=== PATIENT | female | born 1980 | race Caucasian/White ===

== ENCOUNTER 2017-05-09 21:06 | Emergency (ER) | payer MEDICAID, OTHER ==
[2017-05-09] MEDS ORDERED: HYDROmorphone 2 MG/ML Syringe SUBCUT ONE (22:47)
[2017-05-09] MEDS ORDERED: Promethazine 25 MG/ML SDV IM ONE (22:47)
[2017-05-09] MEDS ORDERED: Ketorolac 60 MG/2 ML SDV IM ONE (22:48)
[2017-05-09] MEDS ORDERED: Ondansetron 4 MG Tab.DIS PO ONE (22:48)
--- NOTE | 2017-05-09 22:53 | EDM.PDOC ---
ED HPI GENERAL MEDICAL PROBLEM - General Chief Complaint: General Stated Complaint: HEADACHE Time Seen by Provider: 05/09/17 21:32 Source of Information: Reports: Patient History Limitations: Reports: No Limitations - History of Present Illness INITIAL COMMENTS - FREE TEXT/NARRATIVE: This is a 37yo F who has been to the clinic on May 07 for treatment of her migraine and now in the ER tonight for the same issue 2 days later. She has frequented the ER and our clinic for this same issue and has received the similar treatments as she brings in a letter from her physician Dr. Ky Lloyd MD a neurologist from [facility]. The patient states she has been with this Neurologist for years and that he is a miracle maker. She states she receives botox injections every few months and it helps her episodes. She states she has been worked up and there is some anomalous issue with her brain or arteries. She does seem visibly upset at intervals but able to articulate her history very well. I had called the [facility] for advice and received a call back from Dr. Vishnu Dumont who was unable to direct any advice as he could not access Dr. Lloyd's notes and states he will have Dr. Lloyd call me in the morning. Patient states she [place] with her 6 kids and frequently gets these migraines. She has her daughter with her to keep her company. Her drives and will pick her up per patient. 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 Medication(s) (has prescription of dilaudid) - Related Data Allergies Allergy/AdvReac Type Severity Reaction Status Date / Time amoxicillin trihydrate Allergy Rash Verified 05/09/17 21:08 [From Augmentin] magnesium salicylate Allergy Arrhythmias Verified 05/09/17 21:08 potassium clavulanate Allergy Rash Verified 05/09/17 21:08 [From Augmentin] tramadol HCl [From Ultram] Allergy Seizure Verified 05/09/17 21:08 Home Meds: Home Meds Ondansetron HCl [Zofran] 4 mg PO DAILY 03/20/15 [History] SUMAtriptan [Imitrex Pen Injector Kit] 1 kit SUBCUT ASDIRECTED 05/27/16 [History ] Zolpidem [Ambien] 10 mg PO BEDTIME PRN 05/09/17 [History] Past Medical History - Past Health History Medical/Surgical History: Denies Medical/Surgical History HEENT History: Reports: Impaired Vision 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 - total 7 pregnancies. Neurological History: Reports: CVA, Headaches, Chronic, Migraines, Other (See Below) Other Neuro History: Spasmodic torticollis, abnormal brain scan Other Hematologic History: lupus antiocoagulant Immunologic History: Reports: Other (See Below) Other Immunologic History: lupus anticoagulant - Past Surgical History GI Surgical History: Reports: Cholecystectomy Social & Family History - Family History Family Medical History: Noncontributory HEENT: Reports: None Neurological: Reports: None Endocrine/Metabolic: Reports: None - Tobacco Use Smoking Status *Q: Never Smoker Second Hand Smoke Exposure: No - Caffeine Use Caffeine Use: Reports: Coffee - Alcohol Use Days Per Week of Alcohol Use: 0 - Recreational Drug Use Recreational Drug Use: No ED ROS GENERAL - Review of Systems Review Of Systems: ROS reveals no pertinent complaints other than HPI. ED EXAM, GENERAL - Physical Exam Exam: See Below Exam Limited By: No Limitations General Appearance: Alert, WD/WN, Moderate Distress Eye Exam: Bilateral Eye: EOMI, PERRL Ears: Normal External Exam Nose: Normal Inspection Throat/Mouth: Normal Inspection Head: Atraumatic, Normocephalic Neck: Normal Inspection Respiratory/Chest: No Respiratory Distress Cardiovascular: Normal Peripheral Pulses Neurological: Alert, Oriented, Normal Cognition, Normal Gait, No Motor/Sensory Deficits Psychiatric: Tearful Skin Exam: Warm, Dry, Intact Course - Orders/Labs/Meds Labs: Laboratory Tests 05/09/17 Range/Units 21:30 Urine Opiates Screen Negative (NEGATIVE) Ur Oxycodone Screen Negative (NEGATIVE) Urine Methadone Screen Not Reportable U Acetaminophen Screen Not Reportable Ur Barbiturates Screen Negative (NEGATIVE) Ur Tricyclics Screen Negative (NEGATIVE) Ur Phencyclidine Scrn Negative (NEGATIVE) Ur Amphetamine Screen Negative (NEGATIVE) U Methamphetamines Scrn Negative (NEGATIVE) U Benzodiazepines Scrn Negative (NEGATIVE) U Cocaine Metab Screen Negative (NEGATIVE) U Marijuana (THC) Screen Negative (NEGATIVE) Meds: Medications Discontinued Medications Generic Name Dose Route Start Last Admin Trade Name Keli PRN Reason Stop Dose Admin Hydromorphone HCl 2 mg 05/09/17 22:47 Dilaudid SUBCUT 05/09/17 22:48 ONETIME ONE Ketorolac Tromethamine 60 mg 05/09/17 22:48 Toradol IM 05/09/17 22:49 ONETIME ONE Ondansetron HCl 4 mg 05/09/17 22:48 Zofran Odt PO 05/09/17 22:49 ONETIME ONE Promethazine HCl 50 mg 05/09/17 22:47 Phenergan IM 05/09/17 22:48 ONETIME ONE - Re-Assessments/Exams Free Text/Narrative Re-Assessment/Exam: Patient was given order as directed from Neurology note from 03/19/2017 from [facility] under Dr. Gabino MD. Departure - Departure Time of Disposition: 23:45 Disposition: Home, Self-Care 01 Condition: Good Clinical Impression: Intractable migraine Qualifiers: Migraine type: unspecified Status migrainosus presence: without status migrainosus Qualified Code(s): G43.919 - Migraine, unspecified, intractable, without status migrainosus - Discharge Information Forms: ED Department Discharge Additional Instructions: Continue taking all previously prescribed medications. Drink plenty of fluids and get plenty of rest. Activity as tolerated, with limited exposure to bright lights/screens/electronic devices, which may make migraine headache worse. Follow up with regular provider as needed. Call with any questions. - Problem List & Annotations (1) Intractable migraine SNOMED Code(s): 736159262 Code(s): G43.919 - MIGRAINE, UNSP, INTRACTABLE, WITHOUT STATUS MIGRAINOSUS Status: Acute Qualifiers: Migraine type: unspecified Status migrainosus presence: without status migrainosus Qualified Code(s): G43.919 - Migraine, unspecified, intractable, without status migrainosus - Problem List Review Problem List Initiated/Reviewed/Updated: Yes - Assessment/Plan Plan: Patient counseled on f/u with Neurologist. Discussed concerns of frequent ER visits and repeated Dilaudid, Phenergan, Toradol, Zofran use. Patient understands concerns. I will expect a call from Dr. Lloyd to discuss this matter tomorrow am as stated by Dr. Vishnu Dumont. Patient to be discharged with instructions of no driving. will drive. Rest and contact Neurologist as directed and f/u as needed.
[2017-05-10 03:55] VITALS: BP 115/59
== END 2017-05-09 23:10 | disposition home or self-care (01) ==
LOC: LB.ED 21:06
DX: G43.919 Migraine, unspecified, intractable, without status migrainosus (principal); Z88.1 Allergy status to other antibiotic agents; Z88.5 Allergy status to narcotic agent; Z90.49 Acquired absence of other specified parts of digestive tract; Z79.899 Other long term (current) drug therapy
CPT/HCPCS: 80307; 96372; 99283-25

== ENCOUNTER 2017-06-28 19:11 | Emergency (ER) | payer MEDICAID ==
[2017-06-28 19:58] VITALS: BP 107/52
[2017-06-28] MEDS ORDERED: HYDROmorphone 2 MG/ML Syringe IVPUSH ONE (20:11)
[2017-06-28] MEDS ORDERED: Promethazine 25 MG/ML SDV IM ONE (20:11)
[2017-06-28] MEDS ORDERED: Ketorolac 60 MG/2 ML SDV IM ONE (20:12)
[2017-06-28] MEDS ORDERED: Ondansetron 4 MG Tab.DIS PO ONE (20:12)
--- NOTE | 2017-06-28 20:47 | EDM.PDOC ---
ED HPI GENERAL MEDICAL PROBLEM - General Chief Complaint: Headache Stated Complaint: Migraine Time Seen by Provider: 06/28/17 19:54 Source of Information: Reports: Patient History Limitations: Reports: No Limitations - History of Present Illness INITIAL COMMENTS - FREE TEXT/NARRATIVE: This is a 37yo F in moderate distress with complaints of an intractable migraine. She has been in our ER multiple times with the same order from Dr. Lloyd for Dilaudid, Toradol, Phenergan and zofran. So far this cocktail has worked for her. Patient states she has a follow up appointment with her Neurologist Dr. Lloyd next month. Patient states her medications from home including her sumatriptan has not worked and that is why she is here. Patient denies other concerns but does have photophobia. Her dropped her off tonight and will be picking her up. 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 MACHINE FEEDER: Imitrex pen injector a couple of hours ago - Related Data Allergies Allergy/AdvReac Type Severity Reaction Status Date / Time amoxicillin trihydrate Allergy Rash Verified 06/28/17 19:43 [From Augmentin] magnesium salicylate Allergy Arrhythmias Verified 06/28/17 19:43 potassium clavulanate Allergy Rash Verified 06/28/17 19:43 [From Augmentin] tramadol HCl [From Ultram] Allergy Seizure Verified 06/28/17 19:43 Home Meds: Home Meds Ondansetron HCl [Zofran] 4 mg PO DAILY 03/20/15 [History] SUMAtriptan [Imitrex Pen Injector Kit] 1 kit SUBCUT ASDIRECTED 05/27/16 [History ] Zolpidem [Ambien] 10 mg PO BEDTIME PRN 05/09/17 [History] Past Medical History - Past Health History Medical/Surgical History: Denies Medical/Surgical History HEENT History: Reports: Impaired Vision, Other (See Below) Other HEENT History: wears contact lens 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 - total 7 pregnancies. Neurological History: Reports: CVA, Headaches, Chronic, Migraines, Other (See Below) Other Neuro History: Spasmodic torticollis, abnormal brain scan Other Hematologic History: lupus antiocoagulant Immunologic History: Reports: Other (See Below) Other Immunologic History: lupus anticoagulant - Infectious Disease History Infectious Disease History: Reports: Chicken Pox - Past Surgical History HEENT Surgical History: Reports: None GI Surgical History: Reports: Cholecystectomy Social & Family History - Family History Family Medical History: Noncontributory HEENT: Reports: None Neurological: Reports: None Endocrine/Metabolic: Reports: None - Tobacco Use Smoking Status *Q: Never Smoker Second Hand Smoke Exposure: No - Caffeine Use Caffeine Use: Reports: Coffee, Soda, Tea Caffeine Use Comment: not frequently - Alcohol Use Days Per Week of Alcohol Use: 0 - Recreational Drug Use Recreational Drug Use: No ED ROS GENERAL - Review of Systems Review Of Systems: ROS reveals no pertinent complaints other than HPI. ED EXAM, NEURO - Physical Exam Exam: See Below Exam Limited By: No Limitations General Appearance: Alert, WD/WN, Moderate Distress Eye Exam: Bilateral Eye: EOMI, PERRL Ears: Normal External Exam Nose: Normal Inspection Throat/Mouth: Normal Inspection Head Exam: Atraumatic, Normocephalic Neck: Normal Inspection Respiratory/Chest: No Respiratory Distress Cardiovascular: Normal Peripheral Pulses Neurological: Alert, Normal Mood/Affect Psychiatric: Normal Affect, Normal Mood Skin Exam: Warm, Dry, Intact Course - Vital Signs Last Recorded V/S: Last Vital Signs Temp 36.5 C 06/28/17 19:27 Pulse 49 L 06/28/17 19:27 Resp 16 06/28/17 19:27 BP 107/52 L 06/28/17 19:27 Pulse Ox 100 06/28/17 19:27 - Orders/Labs/Meds Meds: Medications Discontinued Medications Generic Name Dose Route Start Last Admin Trade Name Freq PRN Reason Stop Dose Admin Hydromorphone HCl 2 mg 06/28/17 20:11 06/28/17 20:37 Dilaudid IVPUSH 06/28/17 20:12 2 mg ONETIME ONE Administration Ketorolac Tromethamine 60 mg 06/28/17 20:12 06/28/17 20:23 Toradol IM 06/28/17 20:13 60 mg ONETIME ONE Administration Ondansetron HCl 4 mg 06/28/17 20:12 06/28/17 20:22 Zofran Odt PO 06/28/17 20:13 4 mg ONETIME ONE Administration Promethazine HCl 50 mg 06/28/17 20:11 06/28/17 20:33 Phenergan IM 06/28/17 20:12 50 mg ONETIME ONE Administration - Re-Assessments/Exams Free Text/Narrative Re-Assessment/Exam: Cocktail given IM and PO. Departure - Departure Time of Disposition: 20:50 Disposition: Home, Self-Care 01 Condition: Good Clinical Impression: Migraine Qualifiers: Migraine type: other Status migrainosus presence: without status migrainosus Intractability: intractable Qualified Code(s): G43.819 - Other migraine, intractable, without status migrainosus - Discharge Information Instructions: Migraine Headache, [id number] Referrals: PCP,None [Primary Care Provider] - Forms: ED Department Discharge Additional Instructions: - Follow up with neurologist at anytime. - Problem List & Annotations (1) Intractable migraine SNOMED Code(s): 009317442 Code(s): G43.919 - MIGRAINE, UNSP, INTRACTABLE, WITHOUT STATUS MIGRAINOSUS Status: Acute Priority: High Qualifiers: Migraine type: unspecified Status migrainosus presence: without status migrainosus Qualified Code(s): G43.919 - Migraine, unspecified, intractable, without status migrainosus - Problem List Review Problem List Initiated/Reviewed/Updated: Yes - Assessment/Plan Plan: Patient counseled on f/u with Neurologist for further management and therapy. Confirmed Dr. Lloyd order with traffic control signaler Neurologist Dr. Garcia. We have tried to contact Dr. Lloyd in the past and had consulted Dr. Dumont who informed Dr. Lloyd of his patient being present in our ER with increasing frequency but have not received any feedback or replies. I have also faxed him reports and for confirmation on 05-13-17 without any replies. Discussed plan with Dr. Garcia and we will follow Dr. Lloyd's order and if patient does have to come in greater than 3 times in a month we will admit to the hospital. Patient has improved with Dr. Lloyd's order and we will discharge with counseling and supportive care.
== END 2017-06-28 21:02 | disposition home or self-care (01) ==
LOC: LB.ED 19:11
DX: G43.819 Other migraine, intractable, without status migrainosus (principal); Z88.1 Allergy status to other antibiotic agents; Z88.8 Allergy status to other drugs, medicaments and biological substances; Z79.899 Other long term (current) drug therapy; Z90.49 Acquired absence of other specified parts of digestive tract; Z86.73 Personal history of transient ischemic attack (TIA), and cerebral infarction without residual deficits
CPT/HCPCS: 96372; 96374; 99284; A9270; J1170; J1885; J2550

== ENCOUNTER 2018-04-27 21:37 | Emergency (ER) | payer MEDICAID ==
[2018-04-27 21:53] VITALS: BP 110/56
[2018-04-27] MEDS ORDERED: Ketorolac 60 MG/2 ML SDV IM ONE (22:07)
[2018-04-27] MEDS ORDERED: Promethazine 25 MG/ML SDV IM ONE (22:07)
[2018-04-27] MEDS ORDERED: Ketorolac 60 MG/2 ML SDV ONE (22:15)
[2018-04-27] MEDS ORDERED: Promethazine 25 MG/ML SDV ONE (22:16)
[2018-04-27] MEDS ORDERED: HYDROmorphone 2 MG/ML Syringe SUBCUT PRN (22:40)
--- NOTE | 2018-04-28 07:20 | ER ---
DATE OF SERVICE: 04/27/2018 HISTORY OF PRESENT ILLNESS: This 37-year-old woman presents complaining of a migraine headache. She is 22 weeks . She reports this is her typical migraine headache. She has a note from her perinatologist and her neurologist that suggests that Toradol, Phenergan, and Dilaudid might would be some of the drugs of choice, and Zofran would be some of drugs of choice to treat her migraine headache, no more than 3 times a month. PHYSICAL EXAMINATION: GENERAL: She is alert, interactive, in no acute distress. HEENT: Pupils are equal and reactive. Throat is clear. Face, no maxillary sinus tenderness. Ears are clear. NECK: Supple. LUNGS: Good air movement. No wheezes. HEART: Regular rate and rhythm. ABDOMEN: Benign. ASSESSMENT: Vascular headache. PLAN: Toradol 60 mg IM, Phenergan 50 mg IM, Dilaudid 1 mg IM. She was discharged home in improved condition. SERINA/TAD /[id number] AXEL
== END 2018-04-27 22:59 | disposition home or self-care (01) ==
LOC: LB.ED 21:37
DX: G44.1 Vascular headache, not elsewhere classified (principal)
CPT/HCPCS: 96372; 99283-25; J1885; J2550

== ENCOUNTER 2018-07-03 19:33 | Emergency (ER) | payer MEDICAID ==
[2018-07-03 20:04] VITALS: BP 115/57
[2018-07-03] MEDS ORDERED: HYDROmorphone 2 MG/ML SDV IM ONE (20:08)
[2018-07-03] MEDS ORDERED: Promethazine 25 MG/ML SDV IM ONE (20:08)
--- NOTE | 2018-07-03 20:13 | EDM.PDOC ---
ED HPI GENERAL MEDICAL PROBLEM - General Chief Complaint: General Stated Complaint: MIGRAINE Time Seen by Provider: 07/03/18 20:00 Source of Information: Reports: Patient, RN History Limitations: Reports: No Limitations - History of Present Illness INITIAL COMMENTS - FREE TEXT/NARRATIVE: 38 yr female presents with nausea and migraine. She is and EDC in August 2018. States she will be induced early. She did have some premature contractions earlier in the , but none now. States contractions went away with mag. sulfate. States her headache/migraine and rates the pain about 8 /10. She does have a note from her neurologist and her OB approving of the Phenergan and Dilaudid for migraines during her . Her is with her and is driving. States her last migraine was in May. States she isn't getting any Toradol. Drug monitoring program reviewed and RX has been filled for Dilaudid PO. Headache Pain Score (Numeric/FACES): 8 - Related Data Allergies Allergy/AdvReac Type Severity Reaction Status Date / Time amoxicillin trihydrate Allergy Rash Verified 07/03/18 19:53 [From Augmentin] magnesium salicylate Allergy Arrhythmias Verified 07/03/18 19:53 potassium clavulanate Allergy Rash Verified 07/03/18 19:53 [From Augmentin] tramadol HCl [From Ultram] Allergy Seizure Verified 07/03/18 19:53 Past Medical History - Past Health History Medical/Surgical History: Denies Medical/Surgical History HEENT History: Reports: Impaired Vision, Other (See Below) Other HEENT History: wears contact lens PSYCHOLOGY FELLOW History: Reports: Other PSYCHOLOGY FELLOW History: five living children, 27 weeks gestation with current. - total 7 pregnancies. Neurological History: Reports: CVA, Headaches, Chronic, Migraines, Other (See Below) Other Neuro History: Spasmodic torticollis, abnormal brain scan Other Hematologic History: lupus antiocoagulant Immunologic History: Reports: Other (See Below) Other Immunologic History: lupus anticoagulant - Infectious Disease History Infectious Disease History: Reports: Chicken Pox - Past Surgical History HEENT Surgical History: Reports: None GI Surgical History: Reports: Cholecystectomy Social & Family History - Family History Family Medical History: Noncontributory HEENT: Reports: None Neurological: Reports: None Endocrine/Metabolic: Reports: None - Caffeine Use Caffeine Use: Reports: Coffee, Soda, Tea Caffeine Use Comment: not frequently ED ROS GENERAL - Review of Systems Review Of Systems: See Below Constitutional: Reports: No Symptoms. Denies: Fever, Chills HEENT: Reports: Other (Some seeing of dots to vision with this migraine, no aura.). Denies: Vision Change Respiratory: Reports: No Symptoms Cardiovascular: Reports: No Symptoms GI/Abdominal: Reports: No Symptoms : Reports: No Symptoms Musculoskeletal: Reports: No Symptoms Skin: Reports: No Symptoms Neurological: Reports: No Symptoms Psychiatric: Reports: No Symptoms Hematologic/Lymphatic: Reports: No Symptoms Immunologic: Reports: No Symptoms ED EXAM, GENERAL - Physical Exam Exam: See Below Exam Limited By: No Limitations General Appearance: Alert, No Apparent Distress Ears: Hearing Grossly Normal Throat/Mouth: Normal Voice, No Airway Compromise Head: Atraumatic, Normocephalic Neck: Supple, Non-Tender Respiratory/Chest: No Respiratory Distress Cardiovascular: Regular Rate, Rhythm, No Edema GI/Abdominal: Normal Bowel Sounds, Soft, Non-Tender, No Distention Extremities: Normal Inspection, Normal Range of Motion, Non-Tender, No Pedal Edema Neurological: Alert, Oriented, Normal Cognition Psychiatric: Normal Affect, Normal Mood Skin Exam: Warm, Dry, Normal Color Course - Vital Signs Last Recorded V/S: Last Vital Signs Temp 97.8 F 07/03/18 19:40 Pulse 65 07/03/18 19:40 Resp 16 07/03/18 19:40 BP 115/57 L 07/03/18 19:40 Pulse Ox 98 07/03/18 19:40 - Re-Assessments/Exams Free Text/Narrative Re-Assessment/Exam: 07/03/18 20:18 Will give Dilaudid 2 mg IM and Phenergan 50 mg IM today. Pt should F/U with PSYCHOLOGY FELLOW as scheduled. Rest, fluids, and dark room. Departure - Departure Time of Disposition: 20:20 Disposition: Home, Self-Care 01 Condition: Good Clinical Impression: Nausea, Third trimester Migraine Qualifiers: Migraine type: other Status migrainosus presence: without status migrainosus Intractability: intractable Qualified Code(s): G43.819 - Other migraine, intractable, without status migrainosus - Discharge Information *PRESCRIPTION DRUG MONITORING PROGRAM REVIEWED*: Yes *COPY OF PRESCRIPTION DRUG MONITORING REPORT IN PATIENT ALEJANDRO: Yes
== END 2018-07-03 20:20 | disposition home or self-care (01) ==
LOC: LB.ED 19:33
DX: O99.353 Diseases of the nervous system complicating pregnancy, third trimester (principal); G43.819 Other migraine, intractable, without status migrainosus; Z3A.32 32 weeks gestation of pregnancy; Z88.1 Allergy status to other antibiotic agents; Z88.5 Allergy status to narcotic agent
CPT/HCPCS: 96372; 99283-25; J1170; J2550

== ENCOUNTER 2020-05-13 09:35 | Emergency (ER) | payer MEDICAID ==
[2020-05-13] MEDS ORDERED: Sodium Chloride 0.9% 10 ML Syringe FLUSH PRN (10:35)
[2020-05-13] MEDS: Sodium Chloride 0.9% 1,000 ML IV ONE (10:59)
[2020-05-13 11:11] VITALS: BP 145/81; PULSE 64
[2020-05-13] MEDS: diphenhydrAMINE 50 MG/ML SDV ONE (11:25)
[2020-05-13] MEDS: Ketorolac 30 MG/ML SDV ONE (11:26)
[2020-05-13] MEDS: Prochlorperazine 10 MG/2 ML SDV ONE (11:26)
[2020-05-13] MEDS: diphenhydrAMINE 50 MG/ML SDV IVPUSH ONE (11:27)
[2020-05-13] MEDS: Ketorolac 30 MG/ML SDV IVPUSH ONE (11:32)
[2020-05-13] MEDS: Prochlorperazine 10 MG/2 ML SDV IVPUSH ONE (11:36)
[2020-05-13] MEDS: HYDROmorphone 2 MG/ML SDV IVPUSH ONE (12:24)
--- NOTE | 2020-05-23 10:18 | EDM.PDOC ---
ED HPI GENERAL MEDICAL PROBLEM - General Chief Complaint: Headache Stated Complaint: migraine Time Seen by Provider: 05/13/20 10:15 Source of Information: Reports: Patient History Limitations: Reports: No Limitations - History of Present Illness INITIAL COMMENTS - FREE TEXT/NARRATIVE: Typical migraine started this AM, + photophobia, nausea, Tried tylenol and ibuprofen at home without relief. Onset: Today Location: Reports: Head Quality: Reports: Throbbing Severity: Moderate Improves with: Reports: None Worsens with: Reports: None Associated Symptoms: Reports: No Other Symptoms Treatments HEADING PINNER: Reports: Acetaminophen, NSAIDS Headache Pain Score (Numeric/FACES): 3 - Related Data Allergies Allergy/AdvReac Type Severity Reaction Status Date / Time amoxicillin trihydrate Allergy Rash Verified 07/03/18 19:53 [From Augmentin] magnesium salicylate Allergy Arrhythmias Verified 07/03/18 19:53 potassium clavulanate Allergy Rash Verified 07/03/18 19:53 [From Augmentin] tramadol HCl [From Ultram] Allergy Seizure Verified 07/03/18 19:53 Home Meds: Home Meds Albuterol [Ventolin HFA] 1 puff INH BID PRN 07/03/18 [History] Escitalopram Oxalate 1 tab PO DAILY 07/03/18 [History] No122/Iron/Folic Acid [ Multi Tablet] 1 each PO DAILY 07/03/18 [History] Past Medical History - Past Health History Medical/Surgical History: Denies Medical/Surgical History HEENT History: Reports: Impaired Vision, Other (See Below) Other HEENT History: wears contact lens Respiratory History: Reports: Asthma SHOVEL OILER History: Reports: Other SHOVEL OILER History: five living children, 27 weeks gestation with current. - total 7 pregnancies. Neurological History: Reports: CVA, Headaches, Chronic, Migraines, Other (See Below) Other Neuro History: Spasmodic torticollis, abnormal brain scan Psychiatric History: Reports: Depression Other Hematologic History: lupus antiocoagulant Immunologic History: Reports: Other (See Below) Other Immunologic History: lupus anticoagulant - Infectious Disease History Infectious Disease History: Reports: Chicken Pox - Past Surgical History HEENT Surgical History: Reports: None GI Surgical History: Reports: Cholecystectomy Social & Family History - Family History Family Medical History: Noncontributory HEENT: Reports: None Neurological: Reports: None Endocrine/Metabolic: Reports: None - Tobacco Use Smoking Status *Q: Never Smoker Second Hand Smoke Exposure: No - Caffeine Use Caffeine Use: Reports: Coffee, Soda, Tea Caffeine Use Comment: not frequently - Recreational Drug Use Recreational Drug Use: No ED ROS GENERAL - Review of Systems Review Of Systems: See Below Constitutional: Reports: No Symptoms HEENT: Reports: No Symptoms Respiratory: Reports: No Symptoms Cardiovascular: Reports: No Symptoms Endocrine: Reports: No Symptoms GI/Abdominal: Reports: No Symptoms : Reports: No Symptoms Musculoskeletal: Reports: No Symptoms Skin: Reports: No Symptoms Neurological: Reports: Headache Psychiatric: Reports: No Symptoms - Physical Exam Exam: See Below Exam Limited By: No Limitations General Appearance: Alert, Anxious, Mild Distress Ears: Normal External Exam Nose: Normal Inspection Throat/Mouth: Normal Inspection, Normal Voice Head Exam: Atraumatic Neck: Normal Inspection, Non-Tender, Full Range of Motion Respiratory/Chest: No Respiratory Distress, Lungs Clear, Normal Breath Sounds Cardiovascular: Normal Peripheral Pulses, Regular Rate, Rhythm GI/Abdominal: Soft, Non-Tender Neuro Exam (Abbreviated): Alert, Oriented, Normal Cognition, No Motor/Sensory Deficits Back Exam: Normal Inspection, Full Range of Motion Extremities: Normal Inspection, Normal Range of Motion, Normal Capillary Refill Psychiatric: Normal Affect, Normal Mood Skin Exam: Warm, Dry, Intact Course - Vital Signs Last Recorded V/S: Last Vital Signs Temp 98.2 F 05/13/20 11:10 Pulse 64 05/13/20 11:10 Resp 16 05/13/20 11:10 BP 145/81 H 05/13/20 11:10 Pulse Ox 100 05/13/20 11:10 - Orders/Labs/Meds Meds: Medications Discontinued Medications Generic Name Dose Route Start Last Admin Trade Name Keli PRXimena Reason Stop Dose Admin Diphenhydramine HCl 50 mg 05/13/20 11:16 05/13/20 11:27 Benadryl IVPUSH 05/13/20 11:17 50 mg ONETIME ONE Administration Diphenhydramine HCl Confirm 05/13/20 11:29 05/13/20 11:25 Benadryl Administered 05/13/20 11:30 Not Given Dose 50 mg .ROUTE .STK-MED ONE Hydromorphone HCl 2 mg 05/13/20 12:06 05/13/20 12:24 Dilaudid IVPUSH 05/13/20 12:07 2 mg ONETIME ONE Administration Sodium Chloride 1,000 mls @ 999 mls/min 05/13/20 10:34 05/13/20 10:59 Normal Saline IV 05/13/20 10:35 999 mls/min .BOLUS ONE Administration Ketorolac Tromethamine 30 mg 05/13/20 11:16 05/13/20 11:32 Toradol IVPUSH 05/13/20 11:17 30 mg ONETIME ONE Administration Ketorolac Tromethamine Confirm 05/13/20 11:28 05/13/20 11:26 Toradol Administered 05/13/20 11:29 Not Given Dose 30 mg .ROUTE .STK-MED ONE Prochlorperazine Edisylate 10 mg 05/13/20 11:17 05/13/20 11:36 Compazine IVPUSH 05/13/20 11:18 10 mg ONETIME ONE Administration Prochlorperazine Edisylate Confirm 05/13/20 11:28 05/13/20 11:26 Compazine Administered 05/13/20 11:29 Not Given Dose 10 mg .ROUTE .STK-MED ONE Sodium Chloride 10 ml 05/13/20 10:35 Saline Flush FLUSH ASDIRECTED PRN Keep Vein Open Departure - Departure Time of Disposition: 12:45 Disposition: Home, Self-Care 01 Condition: Good Clinical Impression: Migraine headache Qualifiers: Migraine type: chronic without aura Status migrainosus presence: without status migrainosus Intractability: intractable Qualified Code(s): G43.719 - Chronic migraine without aura, intractable, without status migrainosus - Discharge Information *PRESCRIPTION DRUG MONITORING PROGRAM REVIEWED*: No *COPY OF PRESCRIPTION DRUG MONITORING REPORT IN PATIENT ALEJANDRO: No Referrals: PCP,None [Primary Care Provider] - Sepsis Event Note (ED) - Evaluation Sepsis Screening Result: No Definite Risk
== END 2020-05-13 12:42 | disposition home or self-care (01) ==
LOC: LB.ED 09:35
DX: G43.719 Chronic migraine without aura, intractable, without status migrainosus (principal); J45.909 Unspecified asthma, uncomplicated; F32.9 Major depressive disorder, single episode, unspecified; Z79.899 Other long term (current) drug therapy; Z88.1 Allergy status to other antibiotic agents; Z88.8 Allergy status to other drugs, medicaments and biological substances; Z88.5 Allergy status to narcotic agent
CPT/HCPCS: 96374; 96375; 99283; J0780; J1170; J1200; J1885; J7030